=== PATIENT | female | born 1975 ===

== ENCOUNTER 2020-06-21 07:18 | Emergency (ER) | payer OTHER ==
[~2020-06-21] VITALS: Ht 157.5 cm; Wt 70.3 kg
[2020-06-21] MEDS ORDERED: KETO10TA2 PO (12:30)
[2020-06-21] MEDS ORDERED: NORFLEX100MG PO (12:30)
== END 2020-06-21 12:42 | disposition home or self-care (01) ==
LOC: ER 07:18
DX: M25.521 Pain in right elbow (principal); M54.2 Cervicalgia; M25.511 Pain in right shoulder